=== PATIENT | female | born 1955 | race Caucasian/White ===

== ENCOUNTER → 2021-07-04 11:12 | Outpatient (CLI) | payer BC, SELFPAY ==
--- NOTE | 2021-07-04 11:16 | DI.RAD.S_ITS ---
PROCEDURE: XR DEXA AXIAL SKELETON INDICATIONS: Other specified disorders of bone density and structure COMPARISON: None. FINDINGS: This blank DEXA report has been sent in error by the PACS system. The correct and complete report will be forthcoming in 1-2 days. Thank you for your patience and understanding. Dictated by: Tonya Reyes MD, PhD on 07/04/2021 at 12:49 Approved by: Tonya Reyes MD, PhD on 07/04/2021 at 12:49
== END ==
PROVIDERS: PCP Internal Medicine; Referring Provider Internal Medicine; Visit Provider Internal Medicine
DX: M85.852 Other specified disorders of bone density and structure, left thigh; Z78.0 Asymptomatic menopausal state; Z85.3 Personal history of malignant neoplasm of breast; Z87.891 Personal history of nicotine dependence
CPT/HCPCS: 77080

== ENCOUNTER → 2021-08-02 09:11 | Outpatient (CLI) | payer BC, SELFPAY ==
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
== END ==
PROVIDERS: PCP Internal Medicine
DX: N95.0 Postmenopausal bleeding (principal); D25.1 Intramural leiomyoma of uterus; R93.89 Abnormal findings on diagnostic imaging of other specified body structures
CPT/HCPCS: 76830; 76856

== ENCOUNTER → 2021-08-02 09:58 | Outpatient (CLI) | payer BC, SELFPAY ==
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
== END ==
PROVIDERS: PCP Internal Medicine; Referring Provider Student in an Organized Health Care Education/Training Program; Visit Provider Student in an Organized Health Care Education/Training Program
DX: M79.645 Pain in left finger(s) (principal); N95.0 Postmenopausal bleeding; D25.1 Intramural leiomyoma of uterus; R93.89 Abnormal findings on diagnostic imaging of other specified body structures
CPT/HCPCS: 73140; 76830; 76856

== ENCOUNTER → 2022-12-26 14:13 | Outpatient (CLI) | payer MEDICARE, BC, SELFPAY ==
--- NOTE | 2022-12-26 | DI.US.S_ITS ---
PROCEDURE: US ABDOMEN LIMITED INDICATIONS: Localized swelling, mass and lump, trunk TECHNIQUE: Real-time focused scanning was performed of the inguinal region, with image documentation. COMPARISON: None. FINDINGS: There is a 2.7 x 0.7 x 3.2 cm isoechoic mass within the subcutaneous tissues in the area palpated by the patient. No increased vascularity. 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 Dictated by: Aby Villa M.D. on 12/26/2022 at 16:24 Approved by: Aby Villa M.D. on 12/26/2022 at 16:25
== END ==
PROVIDERS: PCP Internal Medicine; Referring Provider Family Medicine; Visit Provider Family Medicine
DX: R22.2 Localized swelling, mass and lump, trunk (principal)
CPT/HCPCS: 76705

== ENCOUNTER → 2023-07-22 14:39 | Outpatient (CLI) | payer MEDICARE, BC, SELFPAY ==
--- NOTE | 2023-07-22 | DI.RAD.S_ITS ---
PROCEDURE: XR HAND LT MIN 3V INDICATIONS: LEFT HAND PAIN TECHNIQUE: 3 views of the hand acquired. COMPARISON: [facility], CR, XR FINGER LT MIN 2V, 08/02/2021, 10:06.Of the fingers. FINDINGS: Bones: No acute fractures or dislocations. Carpal bones are normally aligned. No suspicious bony lesions. Moderate degenerative changes of the 1st carpometacarpal joint and triscaphe joint. Small ossification adjacent to the ulnar styloid tip is likely the sequela of remote prior trauma. Mild scattered degenerative changes are seen at the interphalangeal joints Soft tissues: No suspicious soft tissue calcifications. IMPRESSION: No acute osseous abnormality. Mild to moderate osteoarthrosis. Approved by: Lb Cabrera M.D. on 07/22/2023 at 21:23
== END ==
LOC: RAD 14:41
PROVIDERS: PCP Internal Medicine; Referring Provider Internal Medicine; Visit Provider Internal Medicine
DX: M19.042 Primary osteoarthritis, left hand (principal); M79.645 Pain in left finger(s); R22.32 Localized swelling, mass and lump, left upper limb; M25.60 Stiffness of unspecified joint, not elsewhere classified
CPT/HCPCS: 73130

== ENCOUNTER → 2023-09-18 12:05 | Outpatient (CLI) | payer MEDICARE, BC, SELFPAY ==
[2023-09-18 13:35] LABS: Testosterone 19.6 ng/dL (5.71-77.0)
[2023-09-19 08:10] LABS: Sex Hormone Binding Globulin 55.3 nmol/L (17.3-125.0)
== END ==
LOC: LAB 12:08
PROVIDERS: PCP Internal Medicine; Referring Provider Obstetrics & Gynecology; Visit Provider Obstetrics & Gynecology
DX: N95.1 Menopausal and female climacteric states (principal); Z79.890 Hormone replacement therapy
CPT/HCPCS: 36415; 84270; 84403

== ENCOUNTER → 2024-09-21 10:35 | Outpatient (CLI) | payer MEDICARE, BC, SELFPAY ==
[2024-09-23 18:10] LABS: Activated Prot C Resistance 2.9 ratio (2.2-3.5); Antithrombin Activity 95 % (75-135); Antithrombin Antigen 87 % (72-124)
[2024-09-23 18:36] LABS: Cardiolipin Ab IgG <9 GPL U/mL (0-14); Cardiolipin Ab IgM <9 MPL U/mL (0-12)
[2024-09-23 20:10] LABS: Antimyeloperoxidase Antibodies <0.2 units (0.0-0.9); Antiproteinase 3 Antibodies <0.2 units (0.0-0.9); Cytoplasmic C-ANCA <1:20 titer (Neg:<1:20); Perinuclear P-ANCA <1:20 titer (Neg:<1:20)
== END ==
PROVIDERS: PCP Internal Medicine; Referring Provider Obstetrics & Gynecology; Visit Provider Obstetrics & Gynecology
DX: H34.8112 Central retinal vein occlusion, right eye, stable (principal)
CPT/HCPCS: 36415; 81241; 85300; 85301; 86256

== ENCOUNTER 2024-12-28 13:32 | Observation (INO) | payer MEDICARE, BC, SELFPAY ==
[2024-12-28] VITALS (10 sets, daily range): BP systolic 101–139; BP diastolic 59–75; PULSE 53–66; RESP 15–21; TEMP 36.7–36.8; O2SAT 95–100; BMI 24.0
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
[2024-12-28 14:00] LABS: Add Manual Diff / Slide Review NO; Hematocrit 45.0 % (36-46); Hemoglobin 15.2 g/dL (12.0-16.0); INR 1.1 (0.9-1.3); Lactate (Lactic Acid) 1.7 mmol/L (0.7-2.1); Lymphocytes Absolute Auto 2200 /uL (1100-4500); Mean Corpuscular HGB Conc 33.7 % (30-36); Mean Corpuscular Hemoglobin 34.1 PG (26-34); Mean Corpuscular Volume 101.2 fL (80-100); Platelet Count 161 X10^3/uL (150-400); Prothrombin Time 12.4 SECONDS (9.4-12.5)
[2024-12-28 14:01] LABS: Alanine Aminotransferase 26 IU/L (<35); Albumin 4.5 g/dL (3.5-5.0); Albumin Globulin Ratio 1.9 (1.0-2.8); Alkaline Phosphatase 75 U/L (38-126); Blood Urea Nitrogen 23 mg/dL (7-17); Calcium 9.7 mg/dL (8.4-10.2); Carbon Dioxide 22 mmol/L (22-32); Chloride 106 mmol/L (98-107); Estimated Glomerular Filt Rate > 60 mL/min (>60); Ethanol (ETOH) < 10 mg/dL (<10); Globulin 2.4 g/dL (1.7-4.1); Glucose 137 mg/dL (70-99); HEMOLYSIS < 15 (0-50); Lipase 101 U/L (23-300); Potassium 3.8 mmol/L (3.4-5.1); Sodium 136 mmol/L (137-145); Total Protein 6.9 g/dL (6.3-8.2)
[2024-12-28 14:02] LABS: PTT Partial Thromboplastin Tim 30 SECONDS (25.1-36.5)
[2024-12-28] MEDS: ONDANSETRON 4 MG/2 ML INJ IV ×2 (14:33→20:56)
[2024-12-28] MEDS: MORPHINE 4 MG/ML INJ IV (14:33)
[2024-12-28] MEDS: BACITRACIN OINT 0.9 GM PCKT 4 APPLIC TOP ×2 (14:34→16:12)
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
--- NOTE | 2024-12-28 16:03 | PC.NURSE ---
Wound care provided to pt, rings and smart watch removed and given to .
[2024-12-28] MEDS: TET,DIPH,PERTUSS(ACELL),VAC/PF 0.5 ML SYRINGE IM (16:11)
[2024-12-28 20:48] LABS: Hematocrit 37.4 % (36-46); Hemoglobin 12.7 g/dL (12.0-16.0)
[2024-12-28] MEDS: DOCUSATE 100 MG CAPSULE PO (20:56)
[2024-12-28] MEDS: OXYCODONE IR 10 MG TABLET PO (20:56)
[2024-12-29] VITALS: BP 105/59; PULSE 63; RESP 17; TEMP 36.7; O2SAT 98
[2024-12-29] MEDS: OXYCODONE IR 10 MG TABLET PO (01:21)
[2024-12-29 04:00] VITALS: BP 105/51; PULSE 60; RESP 17; TEMP 36.7; O2SAT 99
[2024-12-29 04:54] LABS: Hematocrit 34.7 % (36-46); Hemoglobin 11.8 g/dL (12.0-16.0)
--- NOTE | 2024-12-29 07:37 | DI.RAD.S_ITS ---
PROCEDURE: XR HAND RT MIN 3V INDICATIONS: Intense hand pain TECHNIQUE: 3 views of the hand(s) acquired. COMPARISON: [facility], CR, XR HAND LT MIN 3V, 12/28/2024, 13:27. [facility], CR, XR HAND LT MIN 3V, 07/22/2023, 14:52. FINDINGS: Bones: No fractures or dislocations. Carpal bones are normally aligned. No suspicious bony lesions. Soft tissues: No suspicious soft tissue calcifications. IMPRESSION: No acute bony abnormality. Dictated by: Balta Tse M.D. on 12/29/2024 at 8:58 Approved by: Balta Tse M.D. on 12/29/2024 at 8:59
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
[2024-12-29 08:00] VITALS: BP 93/48; PULSE 56; RESP 16; TEMP 36.6; O2SAT 97; O2SAT 98
[2024-12-29] MEDS: DOCUSATE 100 MG CAPSULE PO (08:25)
[2024-12-29] MEDS: IBUPROFEN 400 MG TABLET PO (08:25)
[2024-12-29] MEDS: ACETAMINOPHEN 325 MG TABLET 650 MG PO (08:25)
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
== END 2024-12-29 10:49 | disposition home or self-care (01) ==
LOC: ED 14:58 → AC 15:12
PROVIDERS: Admitting Provider Surgery; Emergency Provider Emergency Medicine; PCP Internal Medicine; Referring Provider Emergency Medicine; Visit Provider Surgery
DX: S70.01XA Contusion of right hip, initial encounter (principal); R55 Syncope and collapse; M79.641 Pain in right hand; S40.819A Abrasion of unspecified upper arm, initial encounter; S80.819A Abrasion, unspecified lower leg, initial encounter; T14.8XXA Other injury of unspecified body region, initial encounter; V18.0XXA Pedal cycle driver injured in noncollision transport accident in nontraffic accident, initial encounter; Y93.55 Activity, bike riding; Z87.891 Personal history of nicotine dependence
CPT/HCPCS: 36415; 70450; 71045; 71275; 72125; 73130; 73502; 74177; 80053; 80320; 83605; 83690; 85014; 85018; 85025; 85610; 85730; 86850; 86900; 86901; 90471; 96374; 96375; 96376; 99221; 99238; 99284; G0378; 90715; J2270; J2405; Q9967

== ENCOUNTER → 2025-01-18 10:18 | Outpatient (CLI) | payer MEDICARE, BC, SELFPAY ==
[2024-12-28 15:17] VITALS: BMI 24.0
--- NOTE | 2025-01-18 10:19 | DI.US.S_ITS ---
PROCEDURE: US EXTREMITY NONVASC LOWER RT INDICATIONS: f/u exam RT hip hematoma TECHNIQUE: Real-time scanning was performed of the right hip , with image documentation. COMPARISON: None. FINDINGS: Soft tissue hypoechoic area complex consistent with hematoma measures 14.1 by 1.3 x 5.6 cm IMPRESSION: Soft tissue hematoma, 14.1 cm Approved by: Keith Aldrich M.D. on 01/20/2025 at 15:13
== END ==
LOC: US 10:19
PROVIDERS: PCP Internal Medicine; Referring Provider Surgery; Visit Provider Surgery
DX: S70.01XA Contusion of right hip, initial encounter (principal); X58.XXXA Exposure to other specified factors, initial encounter
CPT/HCPCS: 76882